=== PATIENT | male | born 1950 | race Caucasian/White ===

== ENCOUNTER → 2017-11-05 | Outpatient (CLI) | payer MEDICARE, MEDICAID ==
[~2017-11-05] MED LIST: BUPR-124 PO; BUPR-147 PO; BUPR300T56 PO; CIP500 PO; CIT20 PO; CITA-141 PO; CITA-145 PO; CYAN500T50 PO; DONE10TA38 PO; ESCI10TA8 PO; FAM20 PO; FLUO20DR3 EACH EAR; IBU800 PO; LOR5/325 PO; LORA0.5T11 PO; MUPI15CR10 TP; NO ROUTINE MEDS; NYST15CR32 TP; PSYL660P5 PO; QUET25TA PO; QUET25TA30 PO; TAM4 PO; TAMS0.4C70 PO; TRIA15OI20 TP
[2017-11-05 10:50] LABS: PLATELET COUNT, AUTOMATED 199 K/uL (150-450)
== END ==
LOC: LAB 10:08
PROVIDERS: ATTEND Internal Medicine
DX: F41.9 Anxiety disorder, unspecified (principal); F03.90 Unspecified dementia, unspecified severity, without behavioral disturbance, psychotic disturbance, mood disturbance, and anxiety; R42 Dizziness and giddiness; Z00.00 Encounter for general adult medical examination without abnormal findings
CPT/HCPCS: 36415; 81001; 82607; 82746; 84443; 85025; G0103; 82040; 82247; 82310; 82374; 82435; 82565; 82947; 84075; 84132; 84153; 84155; 84295; 84450; 84460; 84520

== ENCOUNTER → 2018-04-05 | Outpatient (CLI) | payer MEDICARE, MEDICAID ==
[~2018-04-05] MED LIST changes: +FLU180SY11 IM; +VALA100062 PO
--- NOTE | 2018-04-05 14:33 | RADIOLOGY IMAGING REPORT ---
FACILITY: PATIENT NAME: Elodia Mak : 1950 MR: [id number] V: [id number] EXAM DATE: ORDERING PHYSICIAN: TIKA JUDGE TECHNOLOGIST: Location: [facility] [place] Patient: Elodia Mak : 1950 Visit/Account:[id number] Date of Sevice: 04/05/2018 L-SPINE 2 OR 3 VIEW History: fall, back pain ADDITIONAL CLINICAL HISTORY none COMPARISON STUDIES: None FINDINGS: Osseous structures: No compression fractures identified. There is mild anterior reactive endplate changes seen at T11-12 and L4 and L5 vertebral bodies. Disc space height : Well-maintained. Soft tissues : Normal. IMPRESSION: No evidence of acute trauma. Mild spondylitic changes seen through the lower lumbar spine Report Dictated By: Branden Crawford MD at 04/05/2018 2:27 PM Report E-Signed By: Branden Crawford MD at 04/05/2018 2:30 PM WSN:[id number]
== END ==
LOC: RAD 10:27
PROVIDERS: ATTEND Internal Medicine
DX: M47.896 Other spondylosis, lumbar region (principal)
CPT/HCPCS: 72100

== ENCOUNTER 2018-06-16 10:15 | Emergency (ER) | payer MEDICARE, MEDICAID ==
--- NOTE | 2018-06-16 10:24 | ER Report ---
History and Physical Time Seen By MD: 10:24 HPI/ROS This is a very pleasant man with a history of frontotemporal dementia. His female friend brought him to the emergency department after noticing that his gait today listed to the right a few times. His neuro exam was otherwise at baseline per his friend. He has had worsening balance problems as of late. However, he is able to walk 4-5 miles a without falling. He sometimes walks for an hour and a half at a time. He was able to walk into the emergency department without any problems. He did not fall today. His BP has been on the lower side intermittently. The patient does not have any complaints. Allergies: Coded Allergies: No Known Drug Allergies (Unverified , 08/28/11) Home Meds Active Scripts NYSTATIN 970969 UNT/ML Topical Cream (NYSTATIN 170351 UNT/ML Topical Cream) 15 Gm Cream..g., 15 GM TP BID, #30 GM 2 Refills Prov:TIKA JUDGE MD 01/31/18 Mupirocin Calcium (BACTROBAN) 15 Gm Cream..g., 0 TP BID, #15 GM 1 Refill Prov:TIKA JUDGE MD 11/05/17 Fluocinolone Acetonide Oil (DERMOTIC) 20 Ml Drops, 4 DROP EACH EAR BID for 14 Days, #1 BOT 1 Refill Prov:BENY STAUFFER JR, MD 07/30/17 Reported Medications [Neurosyn] No Conflict Check 06/16/18 [[place] One] No Conflict Check 06/16/18 Donepezil Hcl (DONEPEZIL HCL) 10 Mg Tablet, 10 MG PO QDAY, TAB 10/16/16 Citalopram Hydrobromide (CITALOPRAM HBR) 20 Mg Tablet, 20 MG PO QDAY, TAB 10/16/16 Quetiapine Fumarate (QUETIAPINE FUMARATE) 25 Mg Tablet, 25 MG PO BID for 30 Days, #60 10/16/16 Psyllium Husk (Metamucil) 3.4 Gram/5.4 Gram Powder, 2 TSP PO QDAY 04/30/15 Tamsulosin Hcl (TAMSULOSIN HCL) 0.4 Mg Cap.er.24h, 1 CAP PO QDAY, CAP 04/30/15 Discontinued Scripts Valacyclovir Hcl (VALTREX) 1,000 Mg Tablet, 1000 MG PO Q8H, #21 TAB Prov:TIKA JUDGE MD 11/17/17 Reviewed Nurses Notes: Yes Old Medical Records Reviewed: Yes Smoking Status: Former Smoker Constitutional Vital Sign - Last 24 Hours 06/16/18 10:19 Temp 97.3 Pulse 46 Resp 15 B/P (MAP) 122/62 Pulse Ox 93 O2 Delivery Room Air Physical Exam General Appearance: The patient is alert, has no immediate need for airway protection and no signs of toxicity. Eyes: Pupils equal and round no pallor or injection. ENT, Mouth: Mucous membranes are moist. Respiratory: There are no retractions, lungs are clear to auscultation. Cardiovascular: Regular rate and rhythm. Gastrointestinal: Abdomen is soft and non tender, no masses, bowel sounds normal. Neurological: Walks briskly, and gait at baseline. Normal gross strength. Sensation at baseline per friend. Speech at baseline. Skin: Warm and dry, no rashes. Extremities are nontender, nonswollen and have full range of motion. DIFFERENTIAL DIAGNOSIS: After history and physical exam differential diagnosis was considered for TIA, CVA, infection, worsening of baseline neuro disease. Medical Decision Making Data Points Result Diagram: 06/16/18 1032 06/16/18 1032 Laboratory Hematology Test 06/16/18 10:32 Red Blood Count 5.20 M/uL (4.00-5.60) Mean Corpuscular Volume 97.8 fL (80.0-96.0) Mean Corpuscular Hemoglobin 34.3 pg (26.0-33.0) Mean Corpuscular Hemoglobin Concent 35.1 g/dL (32.0-36.0) Red Cell Distribution Width 14.2 % (11.5-14.5) Mean Platelet Volume 8.1 fL (7.2-11.1) Neutrophils (%) (Auto) 68.3 % (39.4-72.5) Lymphocytes (%) (Auto) 21.6 % (17.6-49.6) Monocytes (%) (Auto) 7.9 % (4.1-12.4) Eosinophils (%) (Auto) 1.4 % (0.4-6.7) Basophils (%) (Auto) 0.8 % (0.3-1.4) Nucleated RBC Relative Count (auto) 0.1 /100WBC Neutrophils # (Auto) 4.6 K/uL (2.0-7.4) Lymphocytes # (Auto) 1.5 K/uL (1.3-3.6) Monocytes # (Auto) 0.5 K/uL (0.3-1.0) Eosinophils # (Auto) 0.1 K/uL (0.0-0.5) Basophils # (Auto) 0.1 K/uL (0.0-0.1) Nucleated RBC Absolute Count (auto) 0.00 K/uL Prothrombin Time 13.7 seconds (12.0-14.4) Prothromb Time International Ratio 1.05 Activated Partial Thromboplast Time 30 seconds (23-35) Sodium Level 139 mmol/L (137-145) Potassium Level 3.9 mmol/L (3.5-5.0) Chloride Level 103 mmol/L (98-107) Carbon Dioxide Level 31 mmol/L (22-30) Blood Urea Nitrogen 18 mg/dl (9-21) Creatinine 1.10 mg/dl (0.66-1.25) Glomerular Filtration Rate Calc > 60.0 Random Glucose 67 mg/dl (75-110) Calcium Level 9.4 mg/dl (8.4-10.2) Total Bilirubin 0.8 mg/dl (0.2-1.3) Aspartate Amino Transf (AST/SGOT) 23 U/L (0-35) Alanine Aminotransferase (ALT/SGPT) 24 U/L (0-56) Alkaline Phosphatase 54 U/L (0-126) Total Protein 7.4 g/dl (6.3-8.2) Albumin 4.2 g/dl (3.5-5.0) Chemistry Test 06/16/18 10:32 White Blood Count 6.7 k/uL (4.5-11.0) Red Blood Count 5.20 M/uL (4.00-5.60) Hemoglobin 17.8 g/dL (14.0-18.0) Hematocrit 50.9 % (42.0-52.0) Mean Corpuscular Volume 97.8 fL (80.0-96.0) Mean Corpuscular Hemoglobin 34.3 pg (26.0-33.0) Mean Corpuscular Hemoglobin Concent 35.1 g/dL (32.0-36.0) Red Cell Distribution Width 14.2 % (11.5-14.5) Platelet Count 212 K/uL (150-450) Mean Platelet Volume 8.1 fL (7.2-11.1) Neutrophils (%) (Auto) 68.3 % (39.4-72.5) Lymphocytes (%) (Auto) 21.6 % (17.6-49.6) Monocytes (%) (Auto) 7.9 % (4.1-12.4) Eosinophils (%) (Auto) 1.4 % (0.4-6.7) Basophils (%) (Auto) 0.8 % (0.3-1.4) Nucleated RBC Relative Count (auto) 0.1 /100WBC Neutrophils # (Auto) 4.6 K/uL (2.0-7.4) Lymphocytes # (Auto) 1.5 K/uL (1.3-3.6) Monocytes # (Auto) 0.5 K/uL (0.3-1.0) Eosinophils # (Auto) 0.1 K/uL (0.0-0.5) Basophils # (Auto) 0.1 K/uL (0.0-0.1) Nucleated RBC Absolute Count (auto) 0.00 K/uL Prothrombin Time 13.7 seconds (12.0-14.4) Prothromb Time International Ratio 1.05 Activated Partial Thromboplast Time 30 seconds (23-35) Glomerular Filtration Rate Calc > 60.0 Calcium Level 9.4 mg/dl (8.4-10.2) Total Bilirubin 0.8 mg/dl (0.2-1.3) Aspartate Amino Transf (AST/SGOT) 23 U/L (0-35) Alanine Aminotransferase (ALT/SGPT) 24 U/L (0-56) Alkaline Phosphatase 54 U/L (0-126) Total Protein 7.4 g/dl (6.3-8.2) Albumin 4.2 g/dl (3.5-5.0) Coagulation Test 06/16/18 10:32 Prothrombin Time 13.7 seconds Prothromb Time International Ratio 1.05 Activated Partial Thromboplast Time 30 seconds ED Course/Re-evaluation ED Course CT head and lab studies at baseline. History and physical is not consistent with underlying infection. No chest pain or shortness of breath. I watched the patient walk, and at one point he did turn to the right and walk. The movement was not consistent with a listing or "pull" to the right as seen with a TIA. It seemed more purposeful in nature. His gait was brisk and strong. He otherwise has a neuro exam that is at baseline. I discussed a TIA workup with the patient's female friend. I do not think that is needed at this time. He is currently not on any blood thinning medications, and I told her that would be an option is a TIA was eventually diagnosed. Again, the symptoms today are not consistent with a TIA. What I saw on his exam today, is more consistent with his underlying balance problems and almost seems purposeful. I recommended that if the symptoms worsen, he should come back to the ED to consider an MRI (the patient would require sedation). They should otherwise follow up with Dr. Olmos early next week. Decision to Disposition Date: Jun 16, 2018 Decision to Disposition Time: 12:17 Depart Departure Latest Vital Signs Vital Signs Date Time Temp Pulse Resp B/P (MAP) Pulse Ox O2 Delivery O2 Flow Rate FiO2 06/16/18 10:19 97.3 46 15 122/62 93 Room Air Impression: Primary Impression: Balance problem Condition: Improved Disposition: HOME OR SELF-CARE Referrals: TIKA JUDGE MD (PCP) Additional Instructions: IF THE SYMPTOMS WORSEN, RETURN TO THE ER. OTHERWISE FOLLOW UP WITH YOUR PRIMARY DOCTOR. ELSI SAUCEDO MD Jun 16, 2018 10:24
[2018-06-16 10:38] LABS: PLATELET COUNT, AUTOMATED 212 K/uL (150-450)
[2018-06-16 10:41] LABS: INR 1.05
[2018-06-16] MEDS ORDERED: [UNRECOGNIZED DRUG - OTHER] (10:41)
[2018-06-16] MEDS ORDERED: [UNRECOGNIZED DRUG - OTHER] (10:41)
--- NOTE | 2018-06-16 11:13 | RADIOLOGY IMAGING REPORT ---
FACILITY: [facility] PATIENT NAME: Elodia Mak : 1950 MR: [id number] V: [id number] EXAM DATE: ORDERING PHYSICIAN: ELSI SAUCEDO TECHNOLOGIST: Location: [facility] - [place] Patient: Elodia Mak : 1950 Visit/Account:[id number] Date of Sevice: 06/16/[address] scan without contrast COMPARISONS: None ADDITIONAL PERTINENT HISTORY: Patient with instability this a.m. TECHNIQUE: Multiple axial images were obtained from the skull base to the vertex without IV contrast . One of the following dose optimization techniques was utilized in the performance of this exam: Aut omated exposure control; adjustment of the mA and/or kV according to the patient's size; or use of an iterative reconstruction technique. Specific details can be referenced in the facility's radiology CT exam operational policy. FINDINGS: Midline shift: Negative Ventricles: Moderate to severe enlargement of the lateral and third ventricles in keeping with the d egree of atrophy present. Brain parenchyma: No intraparenchymal hemorrhage. Patchy hypoattenuation within the periventricular and subcortical white matter, nonspecific but likely representing small vessel ischemic change on a chronic basis. No mass effect noted Extra-axial spaces: Severe cerebral atrophy most prominent involving both frontal lobes and the ante rior aspects of both temporal lobes which can be seen in patients with frontotemporal dementia. Intracranial vasculature: Cavernous internal carotid and distal vertebral artery calcifications. Ot herwise negative Osseous structures: Negative Paranasal sinuses and mastoid air cells: Negative Surrounding soft tissues and orbits: Negative IMPRESSION: 1. Advanced atrophic changes involving the frontal lobes and the anterior aspects of both temporal l obes which can be seen in patients with frontotemporal dementia. 2. Other age-related changes as described above. 3. No acute intracranial pathology. Report Dictated By: Cezar John MD at 06/16/2018 11:05 AM Report E-Signed By: Cezar John MD at 06/16/2018 11:09 AM WSN:[id number]
[2018-06-16 11:30] VITALS: BP 129/71
--- NOTE | 2018-06-16 14:24 | EKG ---
FACILITY: [facility] PATIENT NAME: MARGOTH COLLINS : [id number] MR: [id number] V: [id number] EXAM DATE: ORDERING PHYSICIAN: ELSI SAUCEDO TECHNOLOGIST: MIKE Test Reason : POSSIBLE STROKE Blood Pressure : / mmHG Vent. Rate : 045 BPM Atrial Rate : 045 BPM P-R Int : 148 ms QRS Dur : 098 ms QT Int : 394 ms P-R-T Axes : 041 -80 061 degrees QTc Int : 340 ms Marked sinus bradycardia Left axis deviation Artifact in V2-3 - consider repeat EKG Abnormal ECG Confirmed by NUPUR ACEVEDO ([id number] on 06/16/2018 3:24:33 PM Referred By: LEWIS Confirmed By:NUPUR ACEVEDO
== END 2018-06-16 12:11 | disposition home or self-care (01) ==
LOC: ER 10:28
DX: R26.2 Difficulty in walking, not elsewhere classified (principal); R00.1 Bradycardia, unspecified; G31.09 Other frontotemporal neurocognitive disorder; F02.80 Dementia in other diseases classified elsewhere, unspecified severity, without behavioral disturbance, psychotic disturbance, mood disturbance, and anxiety
CPT/HCPCS: 70450; 82040; 82247; 82310; 82374; 82435; 82565; 82947; 84075; 84132; 84153; 84155; 84295; 84450; 84460; 84520; 85025; 85610; 85730; 93005; 99284